=== PATIENT | male | born 1965 | race Caucasian/White ===

== ENCOUNTER 2017-08-23 15:04 | Inpatient (IN) | payer OTHER ==
[~2017-08-23] VITALS: Ht 180.3 cm; Wt 87.5 kg
[2017-08-23 15:13] VITALS: Ht 180.3 cm; Wt 87.5 kg
[2017-08-23 18:51] LABS: BASOPHIL % 0.1 % (0-2); PLATELET COUNT 214 x10^3mcL (130-400); RED CELL DISTRIBUTION WIDTH 13.5 % (11.5-14.5)
[2017-08-23 19:26] LABS: CALCIUM 8.5 mg/dL (8.5-10.1); CHLORIDE SERUM 104 mmol/L (98-107); CREATININE SERUM 1.1 mg/dL (0.7-1.3); GFR1 > 60 mL/min; GLUCOSE SERUM 114 mg/dL (74-106); POTASSIUM SERUM 4.3 mmol/L (3.5-5.1); SODIUM SERUM 139 mmol/L (136-145)
[2017-08-23 19:51] VITALS: BP 158/101
[2017-08-23 21:30] LABS: FREE T4 0.94 ng/dL (0.76-1.46); FREE THYROXINE INDEX 2.4 ug/dL (1.4-4.5); T4(THYROXINE) 6.7 ug/dL (4.7-13.3)
[2017-08-23 21:31] LABS: T3 TOTAL 1.09 ng/mL
[2017-08-23 22:02] LABS: MAGNESIUM 2.1 mg/dL (1.8-2.4); PHOSPHOROUS 4.3 mg/dL (2.5-4.9)
[2017-08-23 22:07] LABS: CHOLESTEROL/HDL RATIO 3.4
[2017-08-24 05:19] VITALS: BP 112/50
[2017-08-24 06:32] VITALS: BP 113/70
[2017-08-24 06:50] LABS: BASOPHIL % 0.4 % (0-2); PLATELET COUNT 219 x10^3mcL (130-400); RED CELL DISTRIBUTION WIDTH 13.9 % (11.5-14.5)
[2017-08-24 07:22] LABS: CALCIUM 8.4 mg/dL (8.5-10.1); CARBON DIOXIDE 29.4 mmol/L (21-32); CHLORIDE SERUM 102 mmol/L (98-107); CREATININE SERUM 1.1 mg/dL (0.7-1.3); GFR1 > 60 mL/min; GLUCOSE SERUM 104 mg/dL (74-106); MAGNESIUM 2.2 mg/dL (1.8-2.4); PHOSPHOROUS 3.8 mg/dL (2.5-4.9); POTASSIUM SERUM 4.9 mmol/L (3.5-5.1); SODIUM SERUM 138 mmol/L (136-145)
[2017-08-24 09:40] VITALS: BP 100/58
[2017-08-24 14:05] VITALS: BP 112/60
[2017-08-24 17:45] LABS: microscopic required? NO
[2017-08-24 17:54] LABS: urine erythrocyte NEGATIVE (NEGATIVE)
[2017-08-24 18:03] LABS: AMPHETAMINE QUAL UR NONE DETECTED (NEG <=1000)
[2017-08-24 18:13] VITALS: BP 106/64
[2017-08-24 20:09] VITALS: BP 114/67
[2017-08-25 04:52] VITALS: BP 100/70
[2017-08-25 09:23] VITALS: BP 126/77
[2017-08-25 14:07] VITALS: BP 115/69
[2017-08-25 17:13] VITALS: BP 115/68
[2017-08-25 20:57] VITALS: BP 114/71
[2017-08-26 05:15] VITALS: BP 121/65
[2017-08-26 06:20] LABS: BASOPHIL % 0.7 % (0-2); PLATELET COUNT 170 x10^3mcL (130-400); RED CELL DISTRIBUTION WIDTH 13.6 % (11.5-14.5)
[2017-08-26 06:38] LABS: CALCIUM 7.8 mg/dL (8.5-10.1); CARBON DIOXIDE 28.5 mmol/L (21-32); CHLORIDE SERUM 108 mmol/L (98-107); CREATININE SERUM 1.1 mg/dL (0.7-1.3); GFR1 > 60 mL/min; GLUCOSE SERUM 100 mg/dL (74-106); POTASSIUM SERUM 4.6 mmol/L (3.5-5.1); SODIUM SERUM 142 mmol/L (136-145)
[2017-08-26 11:45] VITALS: BP 124/72
[2017-08-26 16:30] VITALS: BP 132/74
[2017-08-26 20:57] VITALS: BP 121/71
[2017-08-27 06:19] VITALS: BP 100/65
[2017-08-27 06:26] LABS: CARBON DIOXIDE 28.8 mmol/L (21-32); CHLORIDE SERUM 108 mmol/L (98-107); CREATININE SERUM 1.1 mg/dL (0.7-1.3); GFR1 > 60 mL/min; GLUCOSE SERUM 111 mg/dL (74-106); POTASSIUM SERUM 5.1 mmol/L (3.5-5.1); SODIUM SERUM 143 mmol/L (136-145)
[2017-08-27 06:50] LABS: BASOPHIL % 0.2 % (0-2); PLATELET COUNT 181 x10^3mcL (130-400); RED CELL DISTRIBUTION WIDTH 12.9 % (11.5-14.5)
[2017-08-27 10:05] VITALS: BP 109/71
[2017-08-27] MEDS ORDERED: FEROSUL325 MG PO ×2 (10:17→12:20)
[2017-08-27] MEDS ORDERED: COLACE100 MG PO ×2 (10:17→12:20)
[2017-08-27] MEDS ORDERED: PHARMASSURE VI500 MG PO ×2 (10:17→12:20)
[2017-08-27] MEDS ORDERED: XARELTO15 M1 PO (10:17)
[2017-08-27] MEDS ORDERED: NORCO 10-325 T1 EACH PO (10:17)
[2017-08-27] MEDS ORDERED: ONDANSETRON4 M3 PO ×2 (10:17→12:20)
[2017-08-27] MEDS ORDERED: HEPARIN SO5000 UNIT/ IJ ×2 (11:59→12:20)
[2017-08-27 13:13] VITALS: BP 109/71
[2017-08-27] MEDS ORDERED: [UNRECOGNIZED DRUG - SUPPLY] SQ (14:52)
== END 2017-08-27 15:30 | disposition home or self-care (01) | DRG 562 ==
LOC: ED 15:04 → DU 18:49
PROVIDERS: Emergency Medicine; Family Medicine
PROC: 0QSGXZZ Reposition Right Tibia, External Approach (ICD-10-PCS; principal; 2017-08-23)
DX: S82.851A Displaced trimalleolar fracture of right lower leg, initial encounter for closed fracture (principal); N17.0 Acute kidney failure with tubular necrosis; E78.5 Hyperlipidemia, unspecified; W17.89XA Other fall from one level to another, initial encounter; Z53.29 Procedure and treatment not carried out because of patient's decision for other reasons; Y93.39 Activity, other involving climbing, rappelling and jumping off; Y92.39 Other specified sports and athletic area as the place of occurrence of the external cause; Z68.25 Body mass index [BMI] 25.0-25.9, adult; Z72.89 Other problems related to lifestyle
CPT/HCPCS: 83880; 84439; 94150; 97110-GP; 97116-GP; 97530-GP; C1713; J0690; J1170; J1644; J1885; J2405; J3010; J3490; J7030; Q0092